=== PATIENT | male | born 1990 | race American Indian/Alaskan Native ===

== ENCOUNTER 2018-10-28 05:15 | Emergency (ER) | payer BC ==
[2018-10-28 05:22] VITALS: BP 118/72
[2018-10-28] MEDS ORDERED: PERCOCET 5/325 PO ONE ×2 (05:50→05:51)
[2018-10-28] MEDS ORDERED: ZOFRAN ODT PO ONE (05:50)
[2018-10-28] MEDS ORDERED: TORADOL IM ONE (05:50)
--- NOTE | 2018-10-28 05:56 | Emergency Department Report ---
ED Upper Extremity Inj HPI - General Chief Complaint: Shoulder Injury Stated Complaint: RT SHOULDER PAIN Time Seen by Provider: 10/28/18 05:52 Source: patient Mode of arrival: Ambulatory Limitations: No Limitations - History of Present Illness Initial Comments: Patient is a 28-year-old, male with no past medical history who presents to the ED with complaint of acute onset persistent severe right lateral sternocleidomastoid and trapezius muscle pain after playing basketball and falling 3 times during basketball practice 12 hours ago. Patient states that the pain is worse with any movement of the neck or right shoulder. Patient states that the pain is constant and persistent since onset 12 hours ago. Patient denies chest pain, neck pain, dizziness, headache, loss of consciousness, nausea, vomiting, numbness and tingling or weakness of right arm, back pain or hip pain. MD Complaint: Injury to:: right, shoulder -: Sudden, hour(s) (12) Other Extremity Injury: Shoulder: Right (lateral right shoulder muscle pain) Other Injuries: none Handedness: right Place: outdoors Severity scale (0 -10): 8 Improves With: none Worsens With: movement of extremity, other (palpation) Context: fall, injury, sports-related injury Associated Symptoms: denies other symptoms. denies: weakness, numbness, neck pain, suspects foreign body, nausea/vomiting, heard/felt popping sensat, other - Related Data Previous Rx's Medication Instructions Recorded Last Taken Type Baclofen 20 mg PO Q8H PRN #24 tablet 10/28/18 Unknown Rx Ibuprofen [Motrin] 600 mg PO Q8H PRN #24 tablet 10/28/18 Unknown Rx traMADol [Ultram] 50 mg PO Q6HR PRN #12 tablet 10/28/18 Unknown Rx Allergies Allergy/AdvReac Type Severity Reaction Status Date / Time No Known Allergies Allergy Unverified 10/28/18 05:22 ED Review of Systems ROS: Stated complaint: RT SHOULDER PAIN Other details as noted in HPI Constitutional: denies: chills, fever Eyes: denies: eye pain, eye discharge, vision change ENT: denies: ear pain, throat pain Respiratory: denies: cough, shortness of breath, wheezing Cardiovascular: denies: chest pain, palpitations Endocrine: no symptoms reported Gastrointestinal: denies: abdominal pain, nausea, diarrhea Genitourinary: denies: urgency, dysuria Musculoskeletal: arthralgia, other (right lateral sternocleidomastoid and trapezious muscle pain). denies: back pain, joint swelling Skin: denies: rash, lesions Neurological: denies: headache, weakness, paresthesias Psychiatric: denies: anxiety, depression Hematological/Lymphatic: denies: easy bleeding, easy bruising ED Past Medical Hx - Past Medical History Previous Medical History?: No - Surgical History Past Surgical History?: No - Social History Smoking Status: Current Every Day Smoker Substance Use Type: None - Medications Home Medications: Home Medications Medication Instructions Recorded Confirmed Last Taken Type Baclofen 20 mg PO Q8H PRN #24 tablet 10/28/18 Unknown Rx Ibuprofen [Motrin] 600 mg PO Q8H PRN #24 tablet 10/28/18 Unknown Rx traMADol [Ultram] 50 mg PO Q6HR PRN #12 tablet 10/28/18 Unknown Rx ED Physical Exam - General Limitations: No Limitations General appearance: alert, in no apparent distress - Head Head exam: Present: atraumatic, normocephalic, normal inspection - Eye Eye exam: Present: normal appearance, PERRL, EOMI Pupils: Present: normal accommodation - ENT ENT exam: Present: normal exam, normal orophraynx, mucous membranes moist, TM's normal bilaterally, normal external ear exam - Neck Neck exam: Present: normal inspection, full ROM. Absent: tenderness, meningismus, lymphadenopathy, thyromegaly - Respiratory Respiratory exam: Present: normal lung sounds bilaterally. Absent: respiratory distress, wheezes, rhonchi, stridor, chest wall tenderness, accessory muscle use, decreased breath sounds, prolonged expiratory - Cardiovascular Cardiovascular Exam: Present: regular rate, normal rhythm. Absent: systolic murmur, diastolic murmur, rubs, gallop - GI/Abdominal GI/Abdominal exam: Present: soft, normal bowel sounds. Absent: tenderness, guarding, rebound, hyperactive bowel sounds, hypoactive bowel sounds, organomegaly - Rectal Rectal exam: Present: deferred - Extremities Exam Extremities exam: Present: normal inspection, tenderness (right lateral sternocleidomastoid and trapezious muscle tenderness), normal capillary refill - Back Exam Back exam: Present: normal inspection, full ROM. Absent: tenderness, CVA tenderness (R), CVA tenderness (L), muscle spasm - Neurological Exam Neurological exam: Present: alert, oriented X3, CN II-XII intact, normal gait, reflexes normal - Psychiatric Psychiatric exam: Present: normal affect, normal mood - Skin Skin exam: Present: warm, dry, intact, normal color. Absent: rash ED Course Vital Signs 10/28/18 05:15 Temperature 98.4 F Pulse Rate 72 Respiratory 18 Rate Blood Pressure 118/72 O2 Sat by Pulse 100 Oximetry - Reevaluation(s) Reevaluation #1: 10/28/18 05:56 This is a 28-year-old male who presents to ED complained of acute onset right lateral sternocleidomastoid and trapezius muscle pain after playing basketball 1999. In the ED, patient is alert and oriented 3 and appears to be in pain but in no acute distress. Patient was treated for pain in the ED and discharged home on pain medications and muscle relaxants and advised to follow-up with his primary care physician in 5-7 days for reevaluation or return to the ED immediately if symptoms get worse. ED Medical Decision Making - Medical Decision Making This is a 28-year-old male who presents to ED complained of acute onset right lateral sternocleidomastoid and trapezius muscle pain after playing basketball 1999. In the ED, patient is alert and oriented 3 and appears to be in pain but in no acute distress. Patient was treated for pain in the ED and discharged home on pain medications and muscle relaxants and advised to follow-up with his primary care physician in 5-7 days for reevaluation or return to the ED immediately if symptoms get worse. - Differential Diagnosis Muscle strain of right shoulder; Sternocleidomastoid muscle spasm Critical care attestation.: If time is entered above; I have spent that time in minutes in the direct care of this critically ill patient, excluding procedure time. ED Disposition Clinical Impression: Muscle strain of right shoulder region Qualifiers: Encounter type: initial encounter Qualified Code(s): S46.911A - Strain of unspecified muscle, fascia and tendon at shoulder and upper arm level, right arm, initial encounter Strain of sternocleidomastoid muscle Qualifiers: Encounter type: initial encounter Qualified Code(s): S16.1XXA - Strain of muscle, fascia and tendon at neck level, initial encounter Disposition: - TO HOME OR SELFCARE Is pt being admited?: No Does the pt Need Aspirin: No Condition: Stable Instructions: Muscle Strain (ED), Muscle Spasm (ED) Additional Instructions: Take medications with food, drink plenty of fluids and follow-up with her primary care physician in 5-7 days for reevaluation. Return to the ED immediately if symptoms get worse. Prescriptions: Baclofen 20 mg PO Q8H PRN #24 tablet PRN Reason: Muscle Spasm Ibuprofen [Motrin] 600 mg PO Q8H PRN #24 tablet PRN Reason: Pain traMADol [Ultram] 50 mg PO Q6HR PRN #12 tablet PRN Reason: Pain Referrals: PRIMARY CARE,MD [Primary Care Provider] - 3-5 Days Forms: Work/School Release Form(ED) Time of Disposition: 06:00 Print Language: [id number]
== END 2018-10-28 06:26 | disposition home or self-care (01) ==
LOC: ED 05:15
DX: S46.911A Strain of unspecified muscle, fascia and tendon at shoulder and upper arm level, right arm, initial encounter (principal); S16.1XXA Strain of muscle, fascia and tendon at neck level, initial encounter; F17.200 Nicotine dependence, unspecified, uncomplicated; Z79.1 Long term (current) use of non-steroidal anti-inflammatories (NSAID); W21.05XA Struck by basketball, initial encounter; Y93.67 Activity, basketball; Y92.39 Other specified sports and athletic area as the place of occurrence of the external cause; Y99.8 Other external cause status
CPT/HCPCS: 96372; 99282; J1885; Q0162